=== PATIENT | female | born 1965 | race Caucasian/White ===

== ENCOUNTER 2017-04-01 10:27 | Inpatient (IN) ==
[2017-04-01] MEDS ORDERED: ONDANSETRON 4 MG/2 ML INJECTION IVP PRN (11:29)
[2017-04-01 12:06] VITALS: BMI 44.6
--- NOTE | 2017-04-01 12:14 | History & Physical Report ---
<Nereyda Davis V - Last Filed: 04/01/17 12:10> History of Present Illness Date: 04/01/17 Chief complaint: fever, back pain, recent pyelonephritis HPI: Patient is a pleasant 51-year-old female who presented to see her primary care provider Tabitha Roberts APRN, at [facility]. Patient had been under the outpatient care for pyelonephritis. On 03/16/17. A urinalysis was obtained that revealed pansensitive Escherichia coli. Patient completed 14 day course of Cipro ending yesterday 03/31. Patient reports started having increased achiness and fever last evening. This prompted her to follow up today for further evaluation. Given the concern of recent pyelonephritis, accompanied with increase in symptoms following a ten-day course of treatment. The hospitalist services were contacted and accepted patient for erect admission for further evaluation and treatment. CT scan from 03/16/17 reviewed. This did indicate perinephric stranding surrounding the left kidney, highly suspicious for pyelonephritis. She is also found to have a left renal stone burden with a cluster of small stones in the intrapolar region. Incidentally, it is noted that she has a prominent right ovarian cyst. She did have a outpatient pelvic sonogram on 03/28/17. Given that she continues to have menstrual bleeding every month. This son of did reveal a large right ovarian cyst as well as enlarged uterus with calcified fibroids noted. Review of Systems All systems: reviewed and no additional remarkable complaints except as stated - Constitutional Constitutional: Present: chills, fatigue, fever(s), malaise - Genitourinary Genitourinary Comments: Patient continues to have monthly menstrual periods every 4 weeks - Musculoskeletal Musculoskeletal: Present: as per HPI, back pain (generalized lumbar back pain/ ache) - Hematologic/Lymphatic Hematologic/Lymphatic: Present: as per HPI Hematologic/Lymphatic Comments: She complains of tenderness to bilateral posterior cervical chain lymph nodes PFSH Hypertension. Hypercholesterolemia Diabetes Right ovarian cyst with uterine fibroids History of acute tubular necrosis Surgical History: Laparoscopic cholecystectomy with intraoperative cholangiogram and over sewing of duodenal fistula- 07/2016 ( Dr Josue). C- section 3 Family History: Mother-MS Father-liver disease - Social History Smoking status: Never smoker Substance use type: does not use Alcohol intake frequency: does not drink Household members: spouse Current residence: Apartment/Private Home Social history: [facility] [place] Medications Home Medications Medication Instructions Recorded Confirmed Type Bupropion Hcl (Budeprion Sr) 300 mg PO DAILY #0 03/07/11 04/01/17 History Carvedilol 25 mg PO BID #0 03/07/11 04/01/17 History Gemfibrozil 600 mg PO BID #0 03/07/11 04/01/17 History Lisinopril 40 mg PO BID #0 tab 07/09/16 04/01/17 History hydroCHLOROthiazide 1 tab PO WB #0 tab 07/09/16 04/01/17 History [Hydrochlorothiazide] Metformin 1,000 tab PO BID 04/01/17 04/01/17 History Allergies Allergy/AdvReac Type Severity Reaction Status Date / Time No Known Allergies Allergy Verified 04/01/17 11:28 Exam Height: 1.68 m Weight: 125.6 kg Body Mass Index: 44.6 - Constitutional Present: no acute distress, well nourished, well developed - Routine HEENT Exam Head: Present: normocephalic, atraumatic Eye: Present: EOMI ENT: Present: mucous membranes moist, dentition normal - Routine Neck Exam Present: full ROM Comments: Bilateral posterior cervical chain lymph node tenderness - Routine Respiratory Exam Present: CTA bilaterally. Absent: wheezes - Routine Cardiovascular Exam Present: RRR, S1, S2, no murmur. Absent: murmur - Routine Abdominal Exam Present: soft, normoactive bowel sounds, non distended. Absent: tenderness - Routine Extremities Exam Present: edema (trace bilateral lower ext), full ROM, normal capillary refill - Routine Back/Spine/Pelvis Exam Back/Spine: Present: full ROM Back image: 1 - generalized back ache - Routine Skin Exam Present: intact, dry, warm - Routine Neurological Exam Present: alert, oriented X3, CN II-XII intact - Routine Psychiatric Exam Present: normal affect Results - Labs CBC & Chem 7: 04/01/17 11:50 04/01/17 12:02 Assessment and Plan (1) Pyelonephritis Current visit: Yes Status: Acute (2) Failure of outpatient treatment Current visit: Yes Status: Acute DVT Prophylaxis: SCD's Resuscitation Status: Full Code Assessment and Plan: Impression Pyelonephritis, failed outpatient treatment Recent urinary tract infection, pansensitive to Escherichia coli Hypertension Diabetes Hypercholesterolemia. Right ovarian cyst with uterine fibroids. History of tubular necrosis Obesity Plan Admit patient to outpatient observation under care of Dr. Long for recent pyelonephritis, failed outpatient treatment with recurrence of fever. Will obtain a urinalysis on admission. Have asked nursing staff to straight catheter patient as she is currently having vaginal bleeding. Will obtain blood cultures and urine culture, as well as sepsis markers including venous lactate and pro-calcitonin to rule out sepsis process. Patient normal saline at 100 ML per hour for gentle hydration. Monitor Accu-Cheks scheduled Home medications reviewed. Will continue on bupropion, Coreg, gemfibrozil. Will hold off on Hydrochlorothiazide, lisinopril and metformin until renal function has been resulted. We need to consider sliding-scale insulin for glycemic control. SCDs to bilateral lower extremity for DVT prophylaxis Zofran available as needed for nausea Will discuss further orders and plan of care with attending, Dr. Long. At time of discharge medical care will return to primary care provider at [facility] Hospital Course Summary Disclaimer: The visit summary below is not to be considered part of the above Progress Note. Hospital Course: 04/01/17-Admission Admit patient to outpatient observation under care of Dr. Long for recent pyelonephritis, failed outpatient treatment with recurrence of fever. Will obtain a urinalysis on admission. Have asked nursing staff to straight catheter patient as she is currently having vaginal bleeding. Will obtain blood cultures and urine culture, as well as sepsis markers including venous lactate and pro-calcitonin to rule out sepsis process. Patient normal saline at 100 ML per hour for gentle hydration. Monitor Accu-Cheks scheduled Home medications reviewed. Will continue on bupropion, Coreg, gemfibrozil. Will hold off on hydrochlorothiazide, lisinopril and metformin until renal function has been resulted. We need to consider sliding-scale insulin for glycemic control. SCDs to bilateral lower extremity for DVT prophylaxis Zofran available as needed for nausea Will discuss further orders and plan of care with attending, Dr. Long. At time of discharge medical care will return to primary care provider at [facility] <Crystal Long - Last Filed: 04/01/17 13:50> History of Present Illness Date: 04/01/17 [facility] Patient Stated Medical History Diabetes Mellitus Type 2 Yes Other Reproductive Yes: rt overy cyst Exam Height: 1.68 m Weight: 125.6 kg Results - Labs CBC & Chem 7: 04/01/17 11:50 04/01/17 12:02 Microbiology Results: Microbiology 04/01/17 12:26 Urine, Cath Straight Urine Culture - Preliminary Culture Initiated - Results Pending 04/01/17 11:50 Peripheral/Iv Start Blood Culture - Preliminary Culture Initiated - Results Pending 04/01/17 12:02 Peripheral/Iv Start Blood Culture - Preliminary Culture Initiated - Results Pending Assessment and Plan (1) Pyelonephritis Current visit: Yes Status: Acute (2) Failure of outpatient treatment Current visit: Yes Status: Acute Assessment and Plan: I have independently evaluated and examined this patient. I reviewed the chart, the patient's history, and the DELINQUENT ACCOUNT CLERK/PA's documented findings as above. We discussed and formulated the assessment and plan as above with additions as below: Mrs. Shin is known from prior hospitalization for cholecystectomy. She has just completed Cipro for left-sided pyelonephritis with perinephric stranding renal CT dated 03/16 and urine culture positive for pansensitive Escherichia coli. One day prior to completing Cipro she developed recurrent achiness followed by fever of 100.9 yesterday evening and intermittent sweats and chills last night. She denies any urinary symptoms per se but notes that she really didn't have them when she presented with pyelonephritis 2 weeks ago. She has generalized back discomfort without localization to one flank. She is complaining of discomfort in the neck with pain localized to the area just behind the mastoid process bilaterally and reports that the same sensation was present at the onset of pyelonephritis. She is undergoing evaluation for a right ovarian cyst and is scheduled for [employer] follow-up next week. On examination the patient appears moderately uncomfortable and rubs her neck repetitively. There is palpable tenderness at the insertion of posterior neck muscle insertions into the occipital aspect of the skull and pain is aggravated by rotational movements of the neck but not flexion. Oropharynx is clear. Respirations are nonlabored and breath sounds are clear. There is no flank tenderness on the right or left. Abdomen is obese, soft, and nontender on palpation although she describes generalized achiness with deep palpation in the lower abdomen. White count is pending, urinalysis is unremarkable, and lactic acid/ procalcitonin are reassuringly normal. Initiate Rocephin, reimage abdomen/pelvis to look for evidence of abscess- perinephric or diverticular. History consistent with recurrent infection although urine unremarkable. Recent renal CT reviewed by myself, discussed with outpatient provider, old records reviewed, laboratory data reviewed as was recent culture result and outpatient labs. Please add nephrolithiasis to above problem list. Hospital Course Summary Disclaimer: The visit summary below is not to be considered part of the above Progress Note.
[2017-04-01] MEDS ORDERED: NS 100 ML ONE (14:26)
[2017-04-01] MEDS ORDERED: IOHEXOL 300mg/ml 100ml INJECTION ONE (14:26)
[2017-04-01] MEDS ORDERED: SALINE FLUSH 10ml SYRINGE ONE (14:26)
[2017-04-01] MEDS: NS 1,000 ML IV SCH ×2 (14:50→21:27)
[2017-04-01] MEDS: ACETAMINOPHEN 500 MG TABLET PO PRN ×2 (14:54→20:14)
[2017-04-01] MEDS: CEFTRIAXONE 1 G in NS 100 ML IV SCH (14:55)
--- NOTE | 2017-04-01 16:45 | CT Scan Report ---
Indication: recent pyelonephritis, recurrent fevers, nephrolithiasis PROCEDURE: CT abdomen pelvis w con: Encounter: Initial Comparison: CT renal dated March 16, 2017 and pelvic ultrasound dated March 28, 2017 Technique: Axial CT images were performed through the abdomen and pelvis after the administration of intravenous contrast. Coronal and sagittal two-dimensional reformats. Automated Exposure Control and Iterative Reconstruction dose reducing techniques were utilized. Contrast: Omnipaque 300 100 mL Findings: The lung bases are clear. The liver is normal. Gallbladder is surgically absent. The spleen is normal. The pancreas and right adrenal gland are normal. Left adrenal adenoma. Right kidney shows a small 1 cm cyst in the interpolar area. No hydronephrosis. Bladder appears normal. Tampon in the vagina. Prominent 5.7 cm cystic lesion again noted in the right ovary. Left ovary is unremarkable. No free fluid. No evidence of a bowel obstruction. Scattered colonic diverticulosis without evidence of acute diverticulitis. Left kidney shows small stones in the upper pole. There is mild perinephric stranding which is less prominent than the comparison study. There is a hypoenhancing region in the superior pole but no evidence of an intrarenal abscess. No left-sided hydronephrosis or ureteral stone. Bone windows are unchanged. Impression: 1. Improving left pyelonephritis. No evidence of an intrarenal abscess. 2. Stable appearance of a large cystic lesion in the right ovary. This has been further evaluated on a recent pelvic ultrasound. .
[2017-04-01] MEDS: CARVEDILOL 25 MG TABLET PO SCH (17:50)
[2017-04-01] MEDS: GEMFIBROZIL 600 MG TABLET PO SCH (17:50)
[2017-04-02] MEDS: ACETAMINOPHEN 500 MG TABLET PO PRN ×3 (01:57→12:09)
[2017-04-02] MEDS: NS 1,000 ML IV SCH ×2 (01:58→06:30)
[2017-04-02] MEDS: GEMFIBROZIL 600 MG TABLET PO SCH ×2 (06:43→17:33)
[2017-04-02] MEDS: BuPROPion SR 150mg (12HR) TABLET PO SCH (08:54)
[2017-04-02] MEDS: CARVEDILOL 25 MG TABLET PO SCH ×2 (08:54→17:33)
--- NOTE | 2017-04-02 09:36 | Progress Note ---
<VirginiaSharmin D - Last Filed: 04/02/17 09:32> Subjective: Nereyda continues to have neck pain that causes a mild posterior headache. She has been achy overall. She had night sweats last night. No joint pains now. No overseas travel; no exotic pets. No hx of lupus or autoimmune disease. Her appetite is improving. No cough, difficulty breathing, chest pain. She had some red spots on her feet this morning but that has resolved. Currently on menstrual period - no vaginal rashes to suggest toxic shock syndrome. Objective Vital signs: Temperature 97.4 F 04/02/17 07:20 Pulse Rate 88 04/02/17 07:20 Respiratory Rate 16 04/02/17 07:20 Blood Pressure 116/66 04/02/17 07:20 Pulse Oximetry 95 04/02/17 07:20 Oxygen Delivery Method Room Air Weight: 126.5 kg - Constitutional Present: no acute distress, well nourished, well developed, obese - Routine HEENT Exam Eye: Absent: conjunctival icterus, scleral injection ENT: Present: oropharynx clear - Routine Respiratory Exam Present: CTA bilaterally - Routine Cardiovascular Exam Present: S1, S2 - Routine Abdominal Exam Present: soft, normoactive bowel sounds - Routine Extremities Exam Present: no edema - Routine Musculoskeletal Exam Musculoskeletal: Present: no clubbing or cyanosis - Routine Skin Exam Present: intact, dry, warm, rash (mild macular papular rash to both lower extremities) - Routine Neurological Exam Present: alert, oriented X3 - Routine Psychiatric Exam Present: normal affect, normal thought process Results - Labs CBC & Chem 7: 04/01/17 14:48 04/01/17 12:02 Microbiology Results: Microbiology 04/01/17 12:26 Urine, Cath Straight Urine Culture - Preliminary Culture Initiated - Results Pending 04/01/17 11:50 Peripheral/Iv Start Blood Culture - Preliminary Culture Initiated - Results Pending 04/01/17 12:02 Peripheral/Iv Start Blood Culture - Preliminary Culture Initiated - Results Pending Assessment and Plan (1) Pyelonephritis Current visit: Yes Status: Acute (2) Failure of outpatient treatment Current visit: Yes Status: Acute DVT Prophylaxis: other (ambulation) Resuscitation Status: Full Code Assessment and Plan: Assessment Pyelonephritis with failed outpatient treatment Mild hypokalemia, POA Mild macular-papular rash to both lower legs Mild normocytic anemia Type 2 DM - last A1c was approx 5.7% - non insulin dependent Nephrolithiasis Depression HTN dyslipidemia Morbid obesity, BMI 45 Plan Continue ceftriaxone, day #2. Cx pending. Check labs, CBC, BMP, TSH, CRP. Replace K. Blood sugars under reasonable control. Continue to hold metformin until PO intake improves. Check fructosamine level. Monitor rash - if progresses may need to change abx. Continue ambulation. Sepsis Assessment - Evaluation Sepsis screening result: No Definite Risk Hospital Course Summary Disclaimer: The visit summary below is not to be considered part of the above Progress Note. Hospital Course: 04/01/17-Admission Admit patient to outpatient observation under care of Dr. Long for recent pyelonephritis, failed outpatient treatment with recurrence of fever. Will obtain a urinalysis on admission. Have asked nursing staff to straight catheter patient as she is currently having vaginal bleeding. Will obtain blood cultures and urine culture, as well as sepsis markers including venous lactate and pro-calcitonin to rule out sepsis process. Patient normal saline at 100 ML per hour for gentle hydration. Monitor Accu-Cheks scheduled Home medications reviewed. Will continue on bupropion, Coreg, gemfibrozil. Will hold off on hydrochlorothiazide, lisinopril and metformin until renal function has been resulted. We need to consider sliding-scale insulin for glycemic control. SCDs to bilateral lower extremity for DVT prophylaxis Zofran available as needed for nausea Will discuss further orders and plan of care with attending, Dr. Long. At time of discharge medical care will return to primary care provider at [facility] 04/02/17 09:47 Assessment Pyelonephritis with failed outpatient treatment Mild hypokalemia, POA Mild macular-papular rash to both lower legs Mild normocytic anemia Type 2 DM - last A1c was approx 5.7% - non insulin dependent Nephrolithiasis Depression HTN dyslipidemia Morbid obesity, BMI 45 Plan Continue ceftriaxone, day #2. Cx pending. Check labs, CBC, BMP, TSH, CRP. Replace K. Blood sugars under reasonable control. Continue to hold metformin until PO intake improves. Check fructosamine level. Monitor rash - if progresses may need to change abx. Continue ambulation. <Carrington Buchanan - Last Filed: 04/02/17 16:29> Subjective: Pt was seen early in the AM with Sharmin - agree with above. After reevaluation pt is increasingly febrile and now has developed a faint rash on both legs ( bilateral), non confluent erythematous plaques (mildly raised) Objective Vital signs: Temperature 101.0 F H 04/02/17 15:51 Pulse Rate 110 H 04/02/17 15:51 Respiratory Rate 16 04/02/17 15:51 Blood Pressure 125/73 04/02/17 15:51 Pulse Oximetry 96 04/02/17 15:51 Oxygen Delivery Method Room Air - Routine Extremities Exam Comments: As above pt has a rash - have asked her RN to take a picture of this. - Routine Lymphatic Exam Lymphatic: Absent: adenopathy Results - Labs CBC & Chem 7: 04/02/17 10:03 04/02/17 10:03 Microbiology Results: Microbiology 04/02/17 12:42 Peripheral/Iv Start Blood Culture - Preliminary Culture Initiated - Results Pending 04/02/17 12:51 Peripheral/Iv Start Blood Culture - Preliminary Culture Initiated - Results Pending 04/01/17 12:26 Urine, Cath Straight Urine Culture - Preliminary No Growth After 1 Day 04/01/17 11:50 Peripheral/Iv Start Blood Culture - Preliminary No Growth After 1 Day 04/01/17 12:02 Peripheral/Iv Start Blood Culture - Preliminary No Growth After 1 Day Assessment and Plan (1) Pyelonephritis Current visit: Yes Status: Acute (2) Failure of outpatient treatment Current visit: Yes Status: Acute GI Prophylaxis: other Assessment and Plan: Pt was seen and examined earlier by me with Sharmin - agree with above plan of care with the following comments As above pt came for failure of treatment for pyelonephritis, but is not having generalized symptoms - fever malaise and a new rash on her lower extremities. CRP is very high. Have ordered Parvovirus B19 titers, ASO; pt was recultured. Will recheck later if rash is worse may add Vancomicyn. Picture of rash was taken. Hospital Course Summary Disclaimer: The visit summary below is not to be considered part of the above Progress Note.
[2017-04-02] MEDS: CEFTRIAXONE 1 G in NS 100 ML IV SCH (13:39)
[2017-04-02] MEDS: SALINE FLUSH 10ml SYRINGE IVF PRN (13:40)
[2017-04-02] MEDS: IBUPROFEN 800 MG TABLET PO PRN (16:52)
[2017-04-02] MEDS: OMEPRAZOLE 20 MG CAPSULE PO SCH (17:33)
[2017-04-03] MEDS: IBUPROFEN 800 MG TABLET PO PRN ×3 (04:46→23:31)
[2017-04-03] MEDS: OMEPRAZOLE 20 MG CAPSULE PO SCH ×2 (06:00→17:42)
[2017-04-03] MEDS: GEMFIBROZIL 600 MG TABLET PO SCH ×2 (08:54→17:42)
[2017-04-03] MEDS: CARVEDILOL 25 MG TABLET PO SCH ×2 (08:54→17:42)
[2017-04-03] MEDS: BuPROPion SR 150mg (12HR) TABLET PO SCH (08:55)
[2017-04-03] MEDS: POTASSIUM CHLORIDE 20 MEQ/15 ML ORAL LIQUID PO SCH ×2 (08:55→17:43)
--- NOTE | 2017-04-03 10:15 | Progress Note ---
Subjective: Pt was feeling better last night until about 3am when she says she had again myalgias, and malaise. Yesterday we observed a rash on her lower extremities that dissapeared afterwards. Today she has a mild cough, no CP/SOB. Objective Vital signs: Temperature 97.2 F 04/03/17 07:40 Pulse Rate 84 04/03/17 07:40 Respiratory Rate 16 04/03/17 07:40 Blood Pressure 108/61 04/03/17 07:40 Pulse Oximetry 95 04/03/17 07:40 Oxygen Delivery Method Room Air Rhythm: Normal Sinus Rhythm Weight: 126.2 kg - Constitutional Present: no acute distress, well nourished, well developed - Routine HEENT Exam Head: Present: normocephalic, atraumatic Eye: Present: EOMI, PERRL - Routine Respiratory Exam Present: CTA bilaterally - Routine Cardiovascular Exam Present: RRR, S1, S2 - Routine Abdominal Exam Present: soft, non distended, non tender - Routine Extremities Exam Absent: cyanosis, clubbing, edema - Routine Skin Exam Present: intact Comments: The rash seen and photographed before is no longer present. Results - Labs CBC & Chem 7: 04/03/17 04:43 04/03/17 04:43 Microbiology Results: Microbiology 04/02/17 12:42 Peripheral/Iv Start Blood Culture - Preliminary Culture Initiated - Results Pending 04/02/17 12:51 Peripheral/Iv Start Blood Culture - Preliminary Culture Initiated - Results Pending 04/01/17 12:26 Urine, Cath Straight Urine Culture - Preliminary No Growth After 1 Day 04/01/17 11:50 Peripheral/Iv Start Blood Culture - Preliminary No Growth After 1 Day 04/01/17 12:02 Peripheral/Iv Start Blood Culture - Preliminary No Growth After 1 Day Assessment and Plan (1) Pyelonephritis Current visit: Yes Status: Acute (2) Failure of outpatient treatment Current visit: Yes Status: Acute (3) Anemia Current visit: Yes Status: Acute (4) Hypokalemia Current visit: Yes Status: Acute Assessment and Plan: This is a 51YO female with recent Pylonephritis, that came to the hospital with fever and was thought to have recurrence of UTI. She has been on Rocephin. She has a rash that comes and goes on her feet, and has elevated CRP. Also gives a H.O recent arthralgias. 1) Fever of unknown origin. - Unlikely that this is due to infection. WBC is normal, Procalcitonin normal. - CRP/ESR high. Parvovirus B19, ASO pending. - Could be autoimmune or Adult onset JRA (Still's disease/ASD). Will hold Ibuprofen and APAP to see if rash is present with fever again. - Respiratory pannel ordered (PCR) and CXR CXR not read I do not see a clear infiltate. - Pt has minimal cough. 2) Anemia. - Check Anemia basic workup. - If Ferritin is extremely high -> ASD ?? 3) Hypokalemia with K of 3.3 (04/03) - Will replace PO today. - Check Mg in blood in lab. Sepsis Assessment - Evaluation Sepsis screening result: No Definite Risk Hospital Course Summary Disclaimer: The visit summary below is not to be considered part of the above Progress Note. Hospital Course: 04/01/17-Admission Admit patient to outpatient observation under care of Dr. Long for recent pyelonephritis, failed outpatient treatment with recurrence of fever. Will obtain a urinalysis on admission. Have asked nursing staff to straight catheter patient as she is currently having vaginal bleeding. Will obtain blood cultures and urine culture, as well as sepsis markers including venous lactate and pro-calcitonin to rule out sepsis process. Patient normal saline at 100 ML per hour for gentle hydration. Monitor Accu-Cheks scheduled Home medications reviewed. Will continue on bupropion, Coreg, gemfibrozil. Will hold off on hydrochlorothiazide, lisinopril and metformin until renal function has been resulted. We need to consider sliding-scale insulin for glycemic control. SCDs to bilateral lower extremity for DVT prophylaxis Zofran available as needed for nausea Will discuss further orders and plan of care with attending, Dr. Long. At time of discharge medical care will return to primary care provider at [facility] 04/02/17 09:47 Assessment Pyelonephritis with failed outpatient treatment Mild hypokalemia, POA Mild macular-papular rash to both lower legs Mild normocytic anemia Type 2 DM - last A1c was approx 5.7% - non insulin dependent Nephrolithiasis Depression HTN dyslipidemia Morbid obesity, BMI 45 Plan Continue ceftriaxone, day #2. Cx pending. Check labs, CBC, BMP, TSH, CRP. Replace K. Blood sugars under reasonable control. Continue to hold metformin until PO intake improves. Check fructosamine level. Monitor rash - if progresses may need to change abx. Continue ambulation.
--- NOTE | 2017-04-03 10:39 | XRay Report ---
INDICATION: cough PROCEDURE: CHEST 2-VIEWS UPRIGHT (PA & LAT) Encounter: Initial COMPARISON: None FINDINGS: The lungs are clear without evidence of focal abnormal airspace opacity. There is no pleural effusion or pneumothorax. The heart size, mediastinal contours and pulmonary vascularity are within normal limits. There is no significant skeletal abnormality. IMPRESSION: No acute cardiopulmonary disease. .
[2017-04-03] MEDS: CEFTRIAXONE 1 G in NS 100 ML IV SCH (13:45)
[2017-04-03] MEDS ORDERED: POTASSIUM CHLORIDE 20 MEQ/15 ML ORAL LIQUID PO ONE (18:00)
[2017-04-04] MEDS: OMEPRAZOLE 20 MG CAPSULE PO SCH ×2 (06:36→17:14)
[2017-04-04] MEDS: CARVEDILOL 25 MG TABLET PO SCH ×2 (07:44→17:14)
[2017-04-04] MEDS: GEMFIBROZIL 600 MG TABLET PO SCH ×2 (07:45→17:15)
[2017-04-04] MEDS: IBUPROFEN 800 MG TABLET PO PRN ×3 (07:45→22:51)
--- NOTE | 2017-04-04 09:32 | Infectious Disease Consult ---
Infectious Disease Consult Date of Consultation: 04/04/17 Requesting Physician: Carrington Buchanan Reason for Consultation: fever, rash History of Present Illness: Ms. Shin is a 51 y/o woman who was treated with cipro for pyelonephritis about 2-3 weeks ago. She reports that her symptoms initially started as "achiness" with fever. She did have some nausea and L flank pain, and CT showed L pyelonephritis. Records indicate that she had a sensitive E. coli in her urine culture. She did not have any vomiting or dysuria or urinary frequency. She gradually felt better, but reports that before she finished her cipro, she started having high fevers again, associated with achiness. She has had fevers since last Tuesday. She was seen by her PCP last Tuesday, and she continued to have symptoms, so she was admitted on Sunday 04/01. She's had fevers up to 101.9. Her workup for infection has been negative. WBC is normal , procalcitonin was negative, UA is negative. Urine and blood cultures are negative. CXR was negative. Respiratory panel was negative. CT chest was done and report is pending. CT abdomen 04/01 showed improving pyelonephritis, and some small non-obstructing stones. She c/o achiness posterior neck, extending down to anterior neck near her anterior cervical LNs. She denies joint swelling, but reports significant pain with her fevers, and feels better in between. She can tell when the ibuprofen is wearing off. She was noted to have a "patchy" rash on her LEs yesterday associated with her fever, that improved when her fever went away. She has been on ceftriaxone since admission. Medications Home Medications Medication Instructions Recorded Confirmed Type Bupropion Hcl (Budeprion Sr) 300 mg PO DAILY #0 03/07/11 04/01/17 History Carvedilol 25 mg PO BID #0 03/07/11 04/01/17 History Gemfibrozil 600 mg PO BID #0 03/07/11 04/01/17 History Lisinopril 40 mg PO BID #0 tab 07/09/16 04/01/17 History hydroCHLOROthiazide 1 tab PO WB #0 tab 07/09/16 04/01/17 History [Hydrochlorothiazide] Metformin 1,000 tab PO BID 04/01/17 04/01/17 History Allergies Allergy/AdvReac Type Severity Reaction Status Date / Time adhesive tape Allergy Mild Irritable Verified 04/02/17 13:48 [facility] Patient Stated Medical History Diabetes Mellitus Type 2 Yes Hx Renal Disease No Other Reproductive Yes: rt overy cyst Surgical History: Laparoscopic cholecystectomy with intraoperative cholangiogram and over sewing of duodenal fistula- 07/2016 ( Dr Josue). C- section 3 Family History: sister has COPD, mother has MS - Social History Smoking status: Never smoker Review of Systems - Constitutional Constitutional: Present: fever(s), headache(s), malaise - EENMT Eyes: Absent: change in vision Mouth/Throat: Absent: sore throat - Cardiovascular Cardiovascular: Absent: chest pain - Respiratory Respiratory: Present: cough (mild,dry). Absent: dyspnea, chest congestion - Gastrointestinal Gastrointestinal: Present: nausea. Absent: abdominal pain, diarrhea, vomiting - Genitourinary Genitourinary: Present: flank pain (now resolved). Absent: urinary frequency, urinary urgency - Musculoskeletal Musculoskeletal: Present: arthralgias, neck pain. Absent: joint swelling - Integumentary/Breasts Integumentary: Present: rash (per HPI, LEs only) - Neurological Neurological: Present: headache(s). Absent: confusion - Allergic/Immunologic Allergic/Immunologic: Present: other (slight sinus drainage) Exam Vital Signs: Temperature 95.9 F L 04/04/17 07:28 Pulse Rate 83 04/04/17 07:40 Respiratory Rate 18 04/04/17 07:28 Blood Pressure 119/59 04/04/17 07:40 Pulse Oximetry 93 04/04/17 07:28 Oxygen Delivery Method Room Air Height: 1.68 m Weight: 126.6 kg Body Mass Index: 44.6 - Constitutional Present: no acute distress, well nourished, well developed - Routine HEENT Exam Eye: Present: EOMI ENT: Present: mucous membranes moist, dentition normal - Routine Neck Exam Present: supple. Absent: lymphadenopathy - Routine Respiratory Exam Present: CTA bilaterally. Absent: wheezes - Routine Cardiovascular Exam Present: RRR. Absent: murmur - Routine Abdominal Exam Present: soft, normoactive bowel sounds, non distended. Absent: tenderness - Routine Extremities Exam Absent: edema, joint swelling - Routine Back/Spine/Pelvis Exam Back/Spine: Absent: CVA tenderness - Routine Skin Exam Present: dry, warm, rash (faint reticular-appearing rash on LEs bilaterally) - Routine Neurological Exam Present: alert, oriented X3, CN II-XII intact - Routine Psychiatric Exam Present: normal affect, normal thought process, depressed (tearful at times) Results - Labs CBC & Chem 7: 04/04/17 04:17 04/04/17 04:17 Microbiology Results: Microbiology 04/02/17 12:42 Peripheral/Iv Start Blood Culture - Preliminary No Growth After 1 Day 04/02/17 12:51 Peripheral/Iv Start Blood Culture - Preliminary No Growth After 1 Day 04/01/17 12:26 Urine, Cath Straight Urine Culture - Final No Growth After 2 Days 04/01/17 11:50 Peripheral/Iv Start Blood Culture - Preliminary No Growth After 2 Days 04/01/17 12:02 Peripheral/Iv Start Blood Culture - Preliminary No Growth After 2 Days Impression: Fevers, recurrent, associated with arthralgias, headache. H/o pyelonephritis, E. coli, s/p 14 days of cipro. Rash on LEs associated with fever. DM, not IR HTN Recommendation: Clinically, I doubt her fever has an infectious cause. Parvovirus, CMV and EBV are possible, however, with her rash I think Still's disease is certainly a possibility. I will stop her ceftriaxone. I'm ok with a trial of steroids. She might need to follow up with a [employer]. Discussed with Dr. Buchanan. Sepsis Assessment - Evaluation Sepsis screening result: No Definite Risk
--- NOTE | 2017-04-04 09:50 | Progress Note ---
Subjective: Pt states she is feeling well today, but still is needing her Motrin on the clock. ID evaluated the case and agrees this is most likely non-infectious fever. Will proceed and start PO steroids. Pt informed and agreed with course of action. Objective Vital signs: Temperature 95.9 F L 04/04/17 07:28 Pulse Rate 83 04/04/17 07:40 Respiratory Rate 18 04/04/17 07:28 Blood Pressure 119/59 04/04/17 07:40 Pulse Oximetry 93 04/04/17 07:28 Oxygen Delivery Method Room Air Rhythm: Normal Sinus Rhythm Body Mass Index: 44.6 - Constitutional Present: no acute distress - Routine HEENT Exam Head: Present: normocephalic, atraumatic - Routine Respiratory Exam Present: CTA bilaterally - Routine Cardiovascular Exam Present: RRR, no murmur - Routine Abdominal Exam Present: soft, non tender, distended - Routine Extremities Exam Absent: cyanosis, clubbing, edema Comments: Faint rash on her lower extremities is now visible (Without pt having fever) - Routine Skin Exam Present: intact - Routine Neurological Exam Present: alert, oriented X3, CN II-XII intact - Routine Psychiatric Exam Present: normal affect, good insight, good judgment Results - Labs CBC & Chem 7: 04/04/17 04:17 04/04/17 04:17 Microbiology Results: Microbiology 04/02/17 12:42 Peripheral/Iv Start Blood Culture - Preliminary No Growth After 1 Day 04/02/17 12:51 Peripheral/Iv Start Blood Culture - Preliminary No Growth After 1 Day 04/01/17 12:26 Urine, Cath Straight Urine Culture - Final No Growth After 2 Days 04/01/17 11:50 Peripheral/Iv Start Blood Culture - Preliminary No Growth After 2 Days 04/01/17 12:02 Peripheral/Iv Start Blood Culture - Preliminary No Growth After 2 Days Assessment and Plan (1) Pyelonephritis Current visit: Yes Status: Acute (2) Failure of outpatient treatment Current visit: Yes Status: Acute (3) Anemia Current visit: Yes Status: Acute (4) Hypokalemia Current visit: Yes Status: Acute Assessment and Plan: This is a 51YO female with recent Pylonephritis, that came to the hospital with fever and was thought to have recurrence of UTI. She has been on Rocephin. She has a rash that comes and goes on her feet, and has elevated CRP. Also gives a H.O recent arthralgias and myalgias. Pt was noted to have a malar rash 2 days ago but this disappeared once her fever was controlled, as the lower extremity rash did. 1) Fever of unknown origin, possibly due to auto-immune process (Still's disease is possible). Pt H.H is dropping more than expected, will check for hemolysis. Will start Prednisone at 0.5mg/kg orally and wean off Motrin as tolerated. - HRCT chest done yesterday (04/03) did not show any ILD, infiltrate or lymph nodes - WBC is normal, Procalcitonin normal. - CRP/ESR high. - Parvovirus B19, ASO, DIPAK panel pending - Pt has also developed a cough - HRCT chest negative for ILD - no infiltrates no mass. Viral respiratory panel NEGATIVE 2) Anemia, worsening. - Check Anemia basic workup (PENDING) - Check for hemolysis - LDH - Haptoglobin - Winifred test. a) Eosinophills noted to be increasing - total count is still normal. 3) Hypokalemia with K of 3.3 (04/03) -> Corrected to 3.8 today. 4) Pt has family history of hepatitis. LFT's are normal. Rash on the lower extremities is present with fever. PREVENTION PUD - OMEPRAZOLE DVT - SCD'S Sepsis Assessment - Evaluation Sepsis screening result: No Definite Risk Hospital Course Summary Disclaimer: The visit summary below is not to be considered part of the above Progress Note. Hospital Course: 04/01/17-Admission Admit patient to outpatient observation under care of Dr. Long for recent pyelonephritis, failed outpatient treatment with recurrence of fever. Will obtain a urinalysis on admission. Have asked nursing staff to straight catheter patient as she is currently having vaginal bleeding. Will obtain blood cultures and urine culture, as well as sepsis markers including venous lactate and pro-calcitonin to rule out sepsis process. Patient normal saline at 100 ML per hour for gentle hydration. Monitor Accu-Cheks scheduled Home medications reviewed. Will continue on bupropion, Coreg, gemfibrozil. Will hold off on hydrochlorothiazide, lisinopril and metformin until renal function has been resulted. We need to consider sliding-scale insulin for glycemic control. SCDs to bilateral lower extremity for DVT prophylaxis Zofran available as needed for nausea Will discuss further orders and plan of care with attending, Dr. Long. At time of discharge medical care will return to primary care provider [facility] 04/02/17 09:47 Assessment Pyelonephritis with failed outpatient treatment Mild hypokalemia, POA Mild macular-papular rash to both lower legs Mild normocytic anemia Type 2 DM - last A1c was approx 5.7% - non insulin dependent Nephrolithiasis Depression HTN dyslipidemia Morbid obesity, BMI 45 Plan Continue ceftriaxone, day #2. Cx pending. Check labs, CBC, BMP, TSH, CRP. Replace K. Blood sugars under reasonable control. Continue to hold metformin until PO intake improves. Check fructosamine level. Monitor rash - if progresses may need to change abx. Continue ambulation.
--- NOTE | 2017-04-04 10:09 | CT Scan Report ---
Indication: Cough - ? of autoimmune disease PROCEDURE: CT chest wo con: Encounter: Initial Comparison: Chest x-ray, 04/03/2017 Technique: Axial, sagittal, and coronal noncontrast images of the chest were acquired utilizing radiation dose reduction technique. Findings: Lungs: Ovoid 6 x 3 mm reniform-shaped subpleural nodule in the left lateral base most likely a subpleural lymph node. No additional nodules or masses. No consolidation. Mediastinum: No adenopathy or mass Heart/pericardium: Slight pericardial thickening. Pleura: No pleural fluid or pleural-based mass Great vessels: Lack of contrast limits assessment. No evidence of aortic aneurysm. Upper abdomen: Low density left adrenal adenoma of approximately 3 cm. Cholecystectomy. Nonobstructive left nephrolithiasis. Osseous elements: Degenerative spondylitis; no aggressive lesions. Impression: 1. Reniform shaped probable subpleural left basal intrapulmonary lymph node. Nonetheless, in low-risk patient recommend follow-up CT examination in 12 months and if stable no further assessment. Otherwise follow-up in six months for a total of two years surveillance period. 2. No adenopathy. 3. No active pulmonary disease suspected. 4. Left adrenal adenoma and nonobstructive left nephrolithiasis suspected. Findings are in agreement with those rendered by [facility] at the time of service. .
[2017-04-04] MEDS: BuPROPion SR 150mg (12HR) TABLET PO SCH (10:31)
[2017-04-04] MEDS: PredniSONE 20 MG TABLET PO SCH (10:32)
[2017-04-04] MEDS: SALINE FLUSH 10ml SYRINGE IVF PRN (22:43)
[2017-04-05 00:41] VITALS: RESP 18; O2SAT 96
[2017-04-05] MEDS: OMEPRAZOLE 20 MG CAPSULE PO SCH ×2 (05:56→17:25)
[2017-04-05] MEDS: BuPROPion SR 150mg (12HR) TABLET PO SCH (08:25)
[2017-04-05] MEDS: GEMFIBROZIL 600 MG TABLET PO SCH ×2 (08:25→17:25)
[2017-04-05] MEDS: PredniSONE 20 MG TABLET PO SCH (08:25)
[2017-04-05] MEDS: CARVEDILOL 25 MG TABLET PO SCH ×2 (08:25→17:26)
--- NOTE | 2017-04-05 08:56 | Progress Note ---
<Sharmin Coleman - Last Filed: 04/05/17 08:53> Subjective: Nereyda reports that she did not sleep well last night. She woke up at 2 and couldn't fall back asleep. She believes it's from the prednisone. She states that her throat feels better today, but her neck continues to be very tight. She has been seeing a chiropractor for this, which has been helpful. She has some mild erythema to her anterior chest and around her neckline. She notes that she often gets this when she is helping her out in the field, but thinks that it is red. Now, because she has been wrapping around her neck. She continues to have the rash to her legs. She has been afebrile since 04/03/17. She is going to try to avoid using Motrin today. Objective Vital signs: Temperature 96.0 F L 04/05/17 07:30 Pulse Rate 90 04/05/17 07:30 Respiratory Rate 18 04/05/17 07:30 Blood Pressure 126/79 04/05/17 07:30 Pulse Oximetry 96 04/05/17 07:30 Oxygen Delivery Method Room Air Weight: 128.4 kg - Constitutional Present: no acute distress, well nourished, well developed, obese - Routine HEENT Exam Eye: Absent: conjunctival icterus, scleral injection ENT: Present: mucous membranes moist, oropharynx clear - Routine Respiratory Exam Present: CTA bilaterally - Routine Cardiovascular Exam Present: RRR, S1, S2 - Routine Abdominal Exam Present: soft, normoactive bowel sounds, non distended, non tender - Routine Extremities Exam Present: no edema, pulses intact, normal capillary refill - Routine Back/Spine/Pelvis Exam Back image: 1 - tight musculature with tenderness on palpation - Routine Musculoskeletal Exam Musculoskeletal: Present: no clubbing or cyanosis, moving extremities well - Routine Skin Exam Present: intact, dry, warm, rash (B/L lower ext and now with confluent erythemic rash to anterior chest and around neckline) Results - Labs CBC & Chem 7: 04/05/17 05:01 04/05/17 05:01 Microbiology Results: Microbiology 04/02/17 12:42 Peripheral/Iv Start Blood Culture - Preliminary No Growth After 2 Days 04/02/17 12:51 Peripheral/Iv Start Blood Culture - Preliminary No Growth After 2 Days 04/01/17 11:50 Peripheral/Iv Start Blood Culture - Preliminary No Growth After 3 Days 04/01/17 12:02 Peripheral/Iv Start Blood Culture - Preliminary No Growth After 3 Days 04/01/17 12:26 Urine, Cath Straight Urine Culture - Final No Growth After 2 Days Assessment and Plan (1) Pyelonephritis Current visit: Yes Status: Acute (2) Failure of outpatient treatment Current visit: Yes Status: Acute (3) Anemia Current visit: Yes Status: Acute (4) Hypokalemia Current visit: Yes Status: Acute DVT Prophylaxis: SCD's GI Prophylaxis: other (omeprazole) Resuscitation Status: Full Code Assessment and Plan: This is a 51YO female with recent Pylonephritis, that came to the hospital with fever and was thought to have recurrence of UTI. She has been on Rocephin. She has a rash that comes and goes on her feet, and has elevated CRP. Also gives a H.O recent arthralgias and myalgias. Pt was noted to have a malar rash 2 days ago but this disappeared once her fever was controlled, as the lower extremity rash did. 1) Fever of unknown origin, possibly due to auto-immune process (Still's disease is possible). Pt H.H is dropping more than expected, will check for hemolysis. Will start Prednisone at 0.5mg/kg orally and wean off Motrin as tolerated. - HRCT chest done yesterday (04/03) did not show any ILD, infiltrate or lymph nodes - WBC is normal, Procalcitonin normal. - CRP/ESR high - repeat in am. - DIPAK was negative. Parvovirus B19, Ferritin pending. - ASO was elevated, suggesting rheumatic fever. - Will need outpt f/u with vocational rehab consultant. - Eval. by Dr. Brown - agrees that this is most likely noninfectious and discontinued ceftriaxone. Suspects autoimmune etiology. - Pt has also developed a cough - HRCT chest negative for ILD - no infiltrates no mass. Viral respiratory panel NEGATIVE 2) Anemia, worsening. - Normal LDH and elevated haptoglobin do not suggest hemolysis - Winifred test neg. - Iron level was low at 30; TIBC 263, % Sat 11; - Vit B12 and Folate pending a) Eosinophils decreased back down to normal today. 3) Hypokalemia with K of 3.3 (04/03) -> Corrected. 4) Pt has family history of hepatitis. LFT's are normal. Hep C pending. 5) Neck discomfort - Consult PT for stretching/recommendations PREVENTION PUD - OMEPRAZOLE DVT - SCD'S - Time spent with patient 25 - 35 minutes Sepsis Assessment - Evaluation Sepsis screening result: No Definite Risk Hospital Course Summary Disclaimer: The visit summary below is not to be considered part of the above Progress Note. Hospital Course: 04/01/17-Admission Admit patient to outpatient observation under care of Dr. Long for recent pyelonephritis, failed outpatient treatment with recurrence of fever. Ceftriaxone initiated. Assessment Pyelonephritis with failed outpatient treatment Mild hypokalemia, POA Mild macular-papular rash to both lower legs Mild normocytic anemia Type 2 DM - last A1c was approx 5.7% - non insulin dependent Nephrolithiasis Depression HTN dyslipidemia Morbid obesity, BMI 45 Plan Patient developed malar rash to BLE, frequently associated with fevers. Autoimmune etiology strongly considered. Multiple labs and serologies were ordered. Dr. Brown was consulted on 04/04/17. She felt this was autoimmune and less likely to be infectious. Ceftriaxone was discontinued. Patient had worsening anemia [mild], hemolytic studies were negative. ASO titer was elevated. <Carrington Buchanan - Last Filed: 04/05/17 14:43> Objective Vital signs: Temperature 96.0 F L 04/05/17 07:30 Pulse Rate 90 04/05/17 07:30 Respiratory Rate 18 04/05/17 07:30 Blood Pressure 126/79 04/05/17 07:30 Pulse Oximetry 96 04/05/17 07:30 Oxygen Delivery Method Room Air Results - Labs CBC & Chem 7: 04/05/17 05:01 04/05/17 05:01 Microbiology Results: Microbiology 04/02/17 12:42 Peripheral/Iv Start Blood Culture - Preliminary No Growth After 3 Days 04/02/17 12:51 Peripheral/Iv Start Blood Culture - Preliminary No Growth After 3 Days 04/01/17 11:50 Peripheral/Iv Start Blood Culture - Preliminary No Growth After 4 Days 04/01/17 12:02 Peripheral/Iv Start Blood Culture - Preliminary No Growth After 4 Days 04/01/17 12:26 Urine, Cath Straight Urine Culture - Final No Growth After 2 Days Assessment and Plan (1) Pyelonephritis Current visit: Yes Status: Acute (2) Failure of outpatient treatment Current visit: Yes Status: Acute (3) Anemia Current visit: Yes Status: Acute (4) Hypokalemia Current visit: Yes Status: Acute Assessment and Plan: I have independently examined this patient and agree with above physical exam findings and plan of care. Diagnosis - 1) Fever of unknown origin, not due to infection - possibly due to auto-immune process (Still's disease is possible), associated with a "[place] Colored" rash on her lower extremities that comes and goes (More visible when pt has a fever) . Pt has had arthalgias but these are NOT migratory and are symmetric, the rash comes and goes, this favors Stills disease over Rheumatic fever. - Pt had developed a cough - HRCT chest negative for ILD - no infiltrates no mass. Viral respiratory panel NEGATIVE (04/03) - Prednisone started at 0.5mg/kg on 04/04; pt is feeling better - Has not needed Motrin for the last 12 hrs + - CRP - HIGH AT 74.8 (04/02); ESR - HIGH AT 65 (04/02) - DIPAK SCREEN (PANNEL) - NEGATIVE (04/04) - ASO - ELEVATED - 654 (NORMAL IS LESS THAN 199) EKG (8.1) does not show prolongation of the NH interval. - HRCT chest (04/03) did not show any ILD, infiltrate or lymph nodes - [id number] PENDING. - Strep Assay PENDING. - RF and anti-CCP PENDING. - Parvovirus B19 PENDING. - Ferritin is PENDING. - Will need outpatient f/u with vocational rehab consultant. 2) Anemia, probably mixed of inflammation and blood loss (Has heavy periods). - Normal LDH and elevated haptoglobin do not suggest hemolysis - Winifred test neg. - Iron level was low at 30; TIBC 263, % Sat 11; - Vit B12 and Folate pending - Will start Iron and MVI & Miralax. - UA showed blood but minimal RBC seen -> Will check a CPK level. 3) Hypokalemia with K of 3.3 (04/03) -> Corrected. 4) Fatty liver, most likely ARROYO (per CT abdomen). - Hepatitis C ordered - Most likely due to metabolic syndrome/insulin resistance PREVENTION PUD - OMEPRAZOLE DVT - SCD'S Hospital Course Summary Disclaimer: The visit summary below is not to be considered part of the above Progress Note.
--- NOTE | 2017-04-05 11:08 | XRay Report ---
Indication: Suspecting Still's disease - looking for narrowing of the PROCEDURE: XR wrist BI 3-4V: Encounter: Initial Comparison: None Findings: Right wrist: No acute fracture or dislocation seen. Old ununited ulnar styloid fracture. No evidence of radiocarpal joint space narrowing. The carpal bones are normally aligned. Left wrist: No acute fracture or dislocation. Old ununited ulnar styloid fracture. Carpal bones appear normal. Joint spaces are maintained. Impression: Right wrist: No acute osseous abnormality or significant degenerative change. Left wrist: No acute osseous abnormality or significant degenerative change. .
[2017-04-05] MEDS: MULTI-VITAMIN + MINERAL TABLET PO SCH (15:26)
[2017-04-05] MEDS: SALINE FLUSH 10ml SYRINGE IVF PRN (20:36)
[2017-04-06] MEDS: SALINE FLUSH 10ml SYRINGE IVF PRN (06:24)
[2017-04-06] MEDS: OMEPRAZOLE 20 MG CAPSULE PO SCH (06:24)
[2017-04-06 07:46] VITALS: BP 134/75; PULSE 89; TEMP 96.5
[2017-04-06] MEDS: GEMFIBROZIL 600 MG TABLET PO SCH (07:58)
[2017-04-06] MEDS: IBUPROFEN 800 MG TABLET PO PRN (07:58)
[2017-04-06] MEDS: CARVEDILOL 25 MG TABLET PO SCH (07:58)
[2017-04-06] MEDS: PredniSONE 20 MG TABLET PO SCH (07:58)
[2017-04-06] MEDS: MULTI-VITAMIN + MINERAL TABLET PO SCH (08:00)
[2017-04-06] MEDS ORDERED: FERROUS SULFATE 324 MG TABLET PO SCH (08:00)
[2017-04-06] MEDS: BuPROPion SR 150mg (12HR) TABLET PO SCH (08:00)
[2017-04-06] MEDS ORDERED: CYANOCOBALAMIN (B-12) 500mcg TABLET PO SCH (09:00)
--- NOTE | 2017-04-06 09:06 | Progress Note ---
Subjective Date: 04/06/17 Subjective: She is feeling better today. She was started on steroids on Tuesday. She went all day yesterday without taking ibuprofen. She did take some this morning because she had a slight headache and her neck hurt. She is not sleeping well due to the prednisone. No more fevers. She notes that her rash is more red when she is warmer (i.e.when her legs are under the covers or when she has a fever). She is hoping to go home today. Exam Vital Signs: Temperature 96.5 F L 04/06/17 07:00 Pulse Rate 89 04/06/17 07:00 Respiratory Rate 18 04/06/17 07:00 Blood Pressure 134/75 04/06/17 07:00 Pulse Oximetry 96 04/06/17 07:00 Oxygen Delivery Method Room Air Height: 1.68 m Weight: 128.2 kg Body Mass Index: 44.6 - Constitutional Present: no acute distress - Routine HEENT Exam Head: Present: normocephalic Eye: Present: EOMI ENT: Present: mucous membranes moist, dentition normal - Routine Neck Exam Present: supple - Routine Respiratory Exam Present: CTA bilaterally - Routine Cardiovascular Exam Present: RRR. Absent: murmur - Routine Abdominal Exam Present: soft, normoactive bowel sounds, non distended. Absent: tenderness - Routine Extremities Exam Absent: no edema - Routine Skin Exam Comments: faint reticular rash on LEs bilaterally - Routine Neurological Exam Present: alert, oriented X3, CN II-XII intact - Routine Psychiatric Exam Present: normal affect Results - Labs CBC & Chem 7: 04/06/17 05:01 04/06/17 05:01 Microbiology Results: Microbiology 04/02/17 12:42 Peripheral/Iv Start Blood Culture - Preliminary No Growth After 3 Days 04/02/17 12:51 Peripheral/Iv Start Blood Culture - Preliminary No Growth After 3 Days 04/01/17 11:50 Peripheral/Iv Start Blood Culture - Preliminary No Growth After 4 Days 04/01/17 12:02 Peripheral/Iv Start Blood Culture - Preliminary No Growth After 4 Days 04/01/17 12:26 Urine, Cath Straight Urine Culture - Final No Growth After 2 Days Impression: Fevers, recurrent, associated with arthralgias, headache. Better with NSAIDS and steroids. H/o pyelonephritis, E. coli, s/p 14 days of cipro. Rash on LEs associated with fever. 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 She does have an elevated ASO titer, but clinically, her presentation is consistent with Still's. I would recommend f/u with Rheumatology. I'll sign off. Please call with questions. Sepsis Assessment - Evaluation Sepsis screening result: No Definite Risk
--- NOTE | 2017-04-06 11:49 | Progress Note ---
Subjective: Pt states she is feeling well. Did not sleep too good and had a headache, this surprisingly enough got better after she drank 1 cup of coffee. Continues to feel well. All recent labs discussed with her. Objective Vital signs: Temperature 96.5 F L 04/06/17 07:00 Pulse Rate 89 04/06/17 07:00 Respiratory Rate 18 04/06/17 07:00 Blood Pressure 134/75 04/06/17 07:00 Pulse Oximetry 96 04/06/17 07:00 Oxygen Delivery Method Room Air Rhythm: Normal Sinus Rhythm Body Mass Index: 44.6 - Constitutional Present: no acute distress - Routine HEENT Exam Head: Present: normocephalic, atraumatic Eye: Present: EOMI, PERRL - Routine Cardiovascular Exam Present: RRR, S1, S2 - Routine Abdominal Exam Present: soft, non distended, non tender - Routine Extremities Exam Absent: cyanosis, clubbing, edema - Routine Neurological Exam Present: alert, oriented X3, CN II-XII intact - Routine Psychiatric Exam Present: normal affect, cooperative, good insight, good judgment Results - Labs CBC & Chem 7: 04/06/17 05:01 04/06/17 05:01 Microbiology Results: Microbiology 04/02/17 12:42 Peripheral/Iv Start Blood Culture - Preliminary No Growth After 3 Days 04/02/17 12:51 Peripheral/Iv Start Blood Culture - Preliminary No Growth After 3 Days 04/01/17 11:50 Peripheral/Iv Start Blood Culture - Preliminary No Growth After 4 Days 04/01/17 12:02 Peripheral/Iv Start Blood Culture - Preliminary No Growth After 4 Days 04/01/17 12:26 Urine, Cath Straight Urine Culture - Final No Growth After 2 Days Assessment and Plan (1) Pyelonephritis Current visit: Yes Status: Acute (2) Failure of outpatient treatment Current visit: Yes Status: Acute (3) Anemia Current visit: Yes Status: Chronic (4) Hypokalemia Current visit: Yes Status: Chronic DVT Prophylaxis: SCD's GI Prophylaxis: other Assessment and Plan: Summary - This is a 51YO female with recent Pylonephritis, that came to the hospital with fever and was thought to have recurrence of UTI. She has been on Rocephin. She has a rash that comes and goes on her feet, and has elevated CRP. Also gives a H.O recent arthralgias and myalgias. Pt was noted to have a malar rash 2 days ago but this disappeared once her fever was controlled, she also had a lower extremity rash "[place] Colored" that dissapeared once her fever went away and was photographed. Once ID agreed that this was non-infection fever , pt was placed on steroids with rapid subjective improvement of her symptoms. Diagnosis - 1) STILL'S DISEASE - LIKELY - Presented as fever of unknown origin, ID thought this was non infectious fever. Pt has had arthralgias but these are NOT migratory and are symmetric. ZAINA CRITERIA (SCORE IS 4 TO 7 - FIVE IS CONSIDERED POSITIVE WITH 93% ACCURACY) MAJOR CRITERIA (DEFINITELY 2 - MAYBE 4 PER PT HISTORY) 1) FEVER OF AT LEAST 39 FOR AT LEAST A WEEK - PER PT YES - NOT OBSERVED IN THIS HOSPITALIZATION 2) ARTHRALGIA OR ARTHRITIS FOR AT LEAST 2 WEEKS - YES 3) NON PRURITIC "SALMON" COLORED RASH ON THE TRUNK/EXTREMITIES - YES PICTURED WILL BE EMAILED TO PATIENT 4) GRADNOLOCYTIC LEUKOCYTOSIS - ABOVE 10,000 PER PT YES - IN PREVIOUS ADMISSION - BUT THAT WAS ATTRIBUTED TO INFECTION MINOR CRITERIA (DEFINITELY 2, MAYBE 3) 1) SORE THROAT - YES 2) LYMPHADENOPATHY - MAYBE WHEN PT HAD SORE THROAT - NOT OBSERVED HERE. 3) HEPATO/SPLENOMEGALY - NO 4) ABNORMAL LFTS' NO 5) NEGATIVE TESTS FOR RA AND DIPAK - YES (CRITERIA DO NOT MENTION ANTI- CCP). - Prednisone started at 0.5mg/kg on 04/04; with rapid improvement of symptoms, that has been sustained. Will D/C home on this medication. - X rays of the wrists did NOT show typical findings described in STILL's disease. - RF screen is NEGATIVE; DIPAK NEGATIVE; FERRITIN NORMAL (REPORTED TO BE ELEVATED IN 70% OF CASES - THUS 30 MAY NOT HAVE ELEVATION) - Pt had developed a cough - HRCT chest negative for ILD - no infiltrates no mass. Viral respiratory panel NEGATIVE (04/03) "................................. Impression: 1. Reniform shaped probable subpleural left basal intrapulmonary lymph node. Nonetheless, in low-risk patient recommend follow-up CT examination in 12 months and if stable no further assessment. Otherwise follow-up in six months for a total of two years surveillance period. 2. No adenopathy. 3. No active pulmonary disease suspected. 4. Left adrenal adenoma and nonobstructive left nephrolithiasis suspected. ..........................................." - CRP - HIGH AT 74.8 (04/02); ESR - HIGH AT 65 (04/02) - ASO - ELEVATED - 654 (NORMAL IS LESS THAN 199) EKG (8.1) does not show prolongation of the SC interval. - Will need outpatient f/u with test tube maker. 2) Anemia, probably mixed of inflammation and blood loss (Has heavy periods). Hemoccult x 2 negative. ? of hematuria ?? - Normal LDH and elevated haptoglobin do not suggest hemolysis - Winifred test neg. - Iron level was low at 30; TIBC 263, % Sat 11; - Vit B12 was low normal - ordered MMA level and will D/C on Oral B12. Folate level NORMAL BUT LOW (Some pts have symptoms if under 400). - Will start Iron and MVI & Miralax + oral B12 - Should have a F.U CBC in one month. - UA showed blood but minimal RBC seen -> CPK x 2 normal. F/U as outpatient make sure pt does not have persistent microscopic hematuria. 3) Hypokalemia persistent with no clear precipitant - in a pt with HTN - Check aldosterone level specially since pt has a LEFT ADRENAL ADENOMA. - Ordered Aldosterone level (PENDING) - Will replace now, should recheck in one week or so. 4) Fatty liver, most likely ARROYO (per CT abdomen). - Hepatitis C ordered (PENDING) - Most likely due to metabolic syndrome/insulin resistance PENDING LABS 1) Aldosterone level 2) Anti-CCP 3) Hepatitis C ordered 4) Methylmalonic acid level 5) Parvovirus B19 PENDING 6) Strep Assay PENDING. FOLLOW UP 1) F/U with PCP in the next week or 2 2) Follow and establish with a Councilman 3) Follow up on lung nodule in 1 year per above recommendations 4) May need additional workup for adrenal adenoma (in CT for nodule it will be re-checked - so if it grows will need to be checked). DISPOSITION - HOME THIS PM Sepsis Assessment - Evaluation Sepsis screening result: No Definite Risk Hospital Course Summary Disclaimer: The visit summary below is not to be considered part of the above Progress Note. Hospital Course: 04/01/17-Admission Admit patient to outpatient observation under care of Dr. Long for recent pyelonephritis, failed outpatient treatment with recurrence of fever. Ceftriaxone initiated. Assessment Pyelonephritis with failed outpatient treatment Mild hypokalemia, POA Mild macular-papular rash to both lower legs Mild normocytic anemia Type 2 DM - last A1c was approx 5.7% - non insulin dependent Nephrolithiasis Depression HTN dyslipidemia Morbid obesity, BMI 45 Plan Patient developed malar rash to BLE, frequently associated with fevers. Autoimmune etiology strongly considered. Multiple labs and serologies were ordered. Dr. Brown was consulted on 04/04/17. She felt this was autoimmune and less likely to be infectious. Ceftriaxone was discontinued. Patient had worsening anemia [mild], hemolytic studies were negative. ASO titer was elevated.
[2017-04-06] MEDS ORDERED: LISINOPRIL 20 MG TABLET PO SCH (12:30)
--- NOTE | 2017-04-06 13:19 | Discharge Instructions ---
Discharge Plan - Med Rec/Dispo [facility] Instructions: Fever in Adults (GEN) Prescriptions: New Ferrous Sulfate [Feosol] 324 mg PO WB #30 tablet Lisinopril [Prinivil] 20 mg PO DAILY #30 tablet Multi-Vitamin + Mineral [Therapeutic - M] 1 tab PO DAILY #30 tablet PredniSONE [Deltasone] 60 mg PO WB #90 tablet Ibuprofen [Motrin] 800 mg PO Q8H PRN tablet PRN Reason: Pain Cyanocobalamin (B-12) [Vit. B-12] 1,000 mcg PO DAILY #60 tablet Omeprazole [Prilosec] 20 mg PO ACBID #60 capsule Continue Carvedilol 25 mg PO BID #0 Bupropion Hcl (Budeprion Sr) 300 mg PO DAILY #0 Metformin 1,000 tab PO BID Gemfibrozil 600 mg PO BID #0 Discontinued Lisinopril 40 mg PO BID #0 tab hydroCHLOROthiazide [Hydrochlorothiazide] 1 tab PO WB #0 tab - Disposition 01 Discharged Home, Self-Care
--- NOTE | 2017-04-06 14:21 | Discharge Summary ---
Discharge Information Date of admission: 04/02/17 13:34 Anticipated date of discharge: 04/06/17 Attending Physician: Carrington Buchanan MD Primary care physician: Tabitha Abraham APRN Consults: 04/04/17 15:29 Physician Consult [CONS] Routine Consulting Provider: Ghislaine Brown Reason For Exam: FUO Ordering Provider has Notified [employer] Account Manager: No Comment: notified dave of consult - Discharge Diagnosis Discharge Diagnosis: Summary - This is a 51YO female with recent Pyelonephritis, that came to the hospital with fever and was thought to have recurrence of UTI. She has been on Rocephin. She has a rash that comes and goes on her feet, and has elevated CRP. Also gives a H.O recent arthralgias and myalgias. Pt was noted to have a malar rash 2 days ago but this disappeared once her fever was controlled, she also had a lower extremity rash "[place] Colored" that dissapeared once her fever went away and was photographed. Once ID agreed that this was non-infection fever , pt was placed on steroids with rapid subjective improvement of her symptoms. Diagnosis - 1) STILL'S DISEASE - LIKELY - Presented as fever of unknown origin, ID thought this was non infectious fever. Pt has had arthralgias but these are NOT migratory and are symmetric. ZAINA CRITERIA (SCORE IS 4 TO 7 - FIVE IS CONSIDERED POSITIVE WITH 93% ACCURACY) MAJOR CRITERIA (DEFINITELY 2 - MAYBE 4 PER PT HISTORY) 1) FEVER OF AT LEAST 39 FOR AT LEAST A WEEK - PER PT YES - NOT OBSERVED IN THIS HOSPITALIZATION 2) ARTHRALGIA OR ARTHRITIS FOR AT LEAST 2 WEEKS - YES 3) NON PRURITIC "SALMON" COLORED RASH ON THE TRUNK/EXTREMITIES - YES PICTURED WILL BE EMAILED TO PATIENT 4) GRADNOLOCYTIC LEUKOCYTOSIS - ABOVE 10,000 PER PT YES - IN PREVIOUS ADMISSION - BUT THAT WAS ATTRIBUTED TO INFECTION MINOR CRITERIA (DEFINITELY 2, MAYBE 3) 1) SORE THROAT - YES 2) LYMPHADENOPATHY - MAYBE WHEN PT HAD SORE THROAT - NOT OBSERVED HERE. 3) HEPATO/SPLENOMEGALY - NO 4) ABNORMAL LFTS' NO 5) NEGATIVE TESTS FOR RA AND DIPAK - YES (CRITERIA DO NOT MENTION ANTI- CCP). - Prednisone started at 0.5mg/kg on 04/04; with rapid improvement of symptoms, that has been sustained. Will D/C home on this medication. - X rays of the wrists did NOT show typical findings described in STILL's disease. - RF screen is NEGATIVE; DIPAK NEGATIVE; FERRITIN NORMAL (REPORTED TO BE ELEVATED IN 70% OF CASES - THUS 30 MAY NOT HAVE ELEVATION) - Pt had developed a cough - HRCT chest negative for ILD - no infiltrates no mass. Viral respiratory panel NEGATIVE (04/03) "................................. Impression: 1. Reniform shaped probable subpleural left basal intrapulmonary lymph node. Nonetheless, in low-risk patient recommend follow-up CT examination in 12 months and if stable no further assessment. Otherwise follow-up in six months for a total of two years surveillance period. 2. No adenopathy. 3. No active pulmonary disease suspected. 4. Left adrenal adenoma and nonobstructive left nephrolithiasis suspected. ..........................................." - CRP - HIGH AT 74.8 (04/02); ESR - HIGH AT 65 (04/02) - ASO - ELEVATED - 654 (NORMAL IS LESS THAN 199) EKG (8.1) does not show prolongation of the ME interval. 2) Anemia, probably mixed of inflammation and blood loss (Has heavy periods). Hemoccult x 2 negative. ? of hematuria ?? - Normal LDH and elevated haptoglobin do not suggest hemolysis - Winifred test neg. - Iron level was low at 30; TIBC 263, % Sat 11; - Vit B12 was low normal - ordered MMA level and will D/C on Oral B12. Folate level NORMAL BUT LOW (Some pts have symptoms if under 400). - Will start Iron and MVI & Miralax + oral B12 (Oral x 1 month) - Should have a F.U CBC in one month. - UA showed blood but minimal RBC seen -> CPK x 2 normal. F/U as outpatient make sure pt does not have persistent microscopic hematuria. 3) Hypokalemia persistent with no clear precipitant - in a pt with HTN - Check aldosterone level specially since pt has a LEFT ADRENAL ADENOMA. - Ordered Aldosterone level (PENDING) - Will replace now, should recheck in one week or so. 4) Fatty liver, most likely ARROYO (per CT abdomen). - Hepatitis C ordered (PENDING) - Most likely due to metabolic syndrome/insulin resistance 5) Adrenal adenoma - Can be W/U as outpatient 6) Solitary pulmonary Nodule. Per recent CT chest (HRCT) "................................. Reniform shaped probable subpleural left basal intrapulmonary lymph node. Nonetheless, in low-risk patient recommend follow-up CT examination in 12 months and if stable no further assessment. Otherwise follow-up in six months for a total of two years surveillance period. ....................................... PENDING LABS 1) Aldosterone level 2) Anti-CCP 3) Fructosamine. 4) Hepatitis C ordered 5) Methylmalonic acid 6) Parvovirus B19 PENDING 7) Strep Assay PENDING. FOLLOW UP 1) F/U with PCP in the next week or 2 2) Establish with a Bowling Ball Molder 3) Follow up on lung nodule per above recommendations 4) CBC in one month 5) Pt told to monitor her BP at home 6) BMP in about a week. - Laboratory Labs: 04/06/17 05:01 04/06/17 05:01 - Microbiology Microbiology 04/02/17 12:42 Peripheral/Iv Start Blood Culture - Preliminary No Growth After 4 Days 04/02/17 12:51 Peripheral/Iv Start Blood Culture - Preliminary No Growth After 4 Days 04/01/17 11:50 Peripheral/Iv Start Blood Culture - Final No Growth After 5 Days 04/01/17 12:02 Peripheral/Iv Start Blood Culture - Final No Growth After 5 Days 04/01/17 12:26 Urine, Cath Straight Urine Culture - Final No Growth After 2 Days History of Present Illness HPI: Patient is a pleasant 51-year-old female who presented to see her primary care provider Tabitha Roberts APRN, at [facility]. Patient had been under the outpatient care for pyelonephritis. On 03/16/17. A urinalysis was obtained that revealed pansensitive Escherichia coli. Patient completed 14 day course of Cipro ending yesterday 03/31. Patient reports started having increased achiness and fever last evening. This prompted her to follow up today for further evaluation. Given the concern of recent pyelonephritis, accompanied with increase in symptoms following a ten-day course of treatment. The hospitalist services were contacted and accepted patient for erect admission for further evaluation and treatment. CT scan from 03/16/17 reviewed. This did indicate perinephric stranding surrounding the left kidney, highly suspicious for pyelonephritis. She is also found to have a left renal stone burden with a cluster of small stones in the intrapolar region. Incidentally, it is noted that she has a prominent right ovarian cyst. She did have a outpatient pelvic sonogram on 03/28/17. Given that she continues to have menstrual bleeding every month. This son of did reveal a large right ovarian cyst as well as enlarged uterus with calcified fibroids noted. Objective Vital signs: Temperature 96.5 F L 04/06/17 07:00 Pulse Rate 89 04/06/17 07:00 Respiratory Rate 18 04/06/17 07:00 Blood Pressure 134/75 04/06/17 07:00 Pulse Oximetry 96 04/06/17 07:00 Oxygen Delivery Method Room Air Rhythm: Normal Sinus Rhythm Body Mass Index: 44.6 - Additional findings Additional findings: Please refer to today's progress notes for details. Pt was seen and examined today. Hospital Course This is a general summary of the patient's hospital course. For more details refer to the complete medical record. Hospital course: 04/01/17-Admission Admit patient to outpatient observation under care of Dr. Long for recent pyelonephritis, failed outpatient treatment with recurrence of fever. Ceftriaxone initiated. Assessment Pyelonephritis with failed outpatient treatment Mild hypokalemia, POA Mild macular-papular rash to both lower legs Mild normocytic anemia Type 2 DM - last A1c was approx 5.7% - non insulin dependent Nephrolithiasis Depression HTN dyslipidemia Morbid obesity, BMI 45 Plan Patient developed malar rash to BLE, frequently associated with fevers. Autoimmune etiology strongly considered. Multiple labs and serologies were ordered. Dr. Brown was consulted on 04/04/17. She felt this was autoimmune and less likely to be infectious. Ceftriaxone was discontinued. Patient had worsening anemia [mild], hemolytic studies were negative. ASO titer was elevated. Discharge Plan - Med Rec/Dispo [place] Instructions: Fever in Adults (GEN) Prescriptions: New Ferrous Sulfate [Feosol] 324 mg PO WB #30 tablet Lisinopril [Prinivil] 20 mg PO DAILY #30 tablet Multi-Vitamin + Mineral [Therapeutic - M] 1 tab PO DAILY #30 tablet PredniSONE [Deltasone] 60 mg PO WB #90 tablet Ibuprofen [Motrin] 800 mg PO Q8H PRN tablet PRN Reason: Pain Cyanocobalamin (B-12) [Vit. B-12] 1,000 mcg PO DAILY #60 tablet Omeprazole [Prilosec] 20 mg PO ACBID #60 capsule Continue Carvedilol 25 mg PO BID #0 Bupropion Hcl (Budeprion Sr) 300 mg PO DAILY #0 Metformin 1,000 tab PO BID Gemfibrozil 600 mg PO BID #0 Discontinued Lisinopril 40 mg PO BID #0 tab hydroCHLOROthiazide [Hydrochlorothiazide] 1 tab PO WB #0 tab - Disposition 01 Discharged Home, Self-Care
== END 2017-04-06 15:05 | disposition home or self-care (01) | DRG 546 ==
LOC: MED
PROVIDERS: ADMIT Internal Medicine; ATTEND Internal Medicine